=== PATIENT | male | born 1940 | race Caucasian/White ===

== ENCOUNTER 2018-01-29 11:06 | Inpatient (IN) ==
[2018-01-29] MEDS ORDERED: SODIUM CHLORIDE 0.9% 1,000 ML IV STA (14:39)
[2018-01-29] MEDS ORDERED: CHOLESTYRAMINE 4 GM PACK PO STA (14:39)
[2018-01-29 15:03] LABS: Basophils % 0.5 % (0.0-0.8); Eosinophils # 0.1 10*3/uL (0.0-0.87); Eosinophils % 6.5 % (0.00-10.9); Hematocrit 39.1 VOL% (42.0-52.0); Hemoglobin 12.5 GM/DL (14.0-18.0); Immature Granulocytes % 1.6 %; Immature Granulocytes Absolute 0.03 #; Mean Corpuscular Hemoglobin 29 PG (27-34); Mean Corpuscular Volume 89.3 FL (87-102); Mean Platelet Volume 9.8 FL (9.6-12.0); Monocytes # 0.2 10*3/uL (0.11-0.8); Monocytes % 10.3 % (1.7-12.7); Neutrophils # 0.5 10*3/uL (1.4-7.4); Neutrophils % 28.1 % (38.7-73.9); Red Blood Count 4.38 MC/CUMM (3.8-5.5); Red Cell Distribution Width 16.1 % (9.3-17.3); White Blood Count 1.9 T/CUMM (4-12)
[2018-01-29 15:04] LABS: Platelet Count 84 T/CUMM (130-400)
[2018-01-29 15:19] LABS: Albumin 2.7 G/DL (3.4-5.0); Bilirubin,Total 0.5 MG/DL (0.2-1.0); Calcium 8.2 MG/DL (8.5-10.1); Osmolality,Calculated 269.5 MOS/KG (273-304); Potassium 4.3 MMOL/L (3.5-5.1)
[2018-01-29 15:57] LABS: Eosinophils 9 % (0-10); Lymphocytes 56 % (20-55); Platelet Estimate Decreased; Segmented Neutrophils 29 % (50-85); Total Cells Counted 100
[2018-01-29 16:00] LABS: Polychromasia Few
[2018-01-29] MEDS ORDERED: chlorproMAZINE INJ 50 MG in SODIUM CHLORIDE 0.9% 100 ML IV PRN (17:31)
[2018-01-29] MEDS ORDERED: BENZTROPINE 2 MG/2 ML AMP IV PRN (17:31)
[2018-01-29] MEDS ORDERED: traMADol 50 MG TABLET PO PRN (17:31)
[2018-01-29] MEDS ORDERED: MYLANTA/LIDO VISC 2:1 300 ML BOTTLE SWISH/SWAL PRN (17:31)
[2018-01-29] MEDS ORDERED: ALPRAZolam 0.25 MG TABLET PO PRN (17:31)
[2018-01-29] MEDS ORDERED: ACETAMINOPHEN 325 MG TABLET PO PRN (17:31)
[2018-01-29] MEDS ORDERED: diphenhydrAMINE CAP 25 MG CAPSULE PO PRN (17:31)
[2018-01-29] MEDS ORDERED: guaiFENesin 200 MG/10 ML UDCUP PO PRN (17:31)
[2018-01-29] MEDS ORDERED: chlorproMAZINE 25 MG TABLET PO PRN (17:31)
[2018-01-29] MEDS ORDERED: ALUMINUM/MAGNES/SIMETH MAX STR 30 ML UDCUP PO PRN (17:31)
[2018-01-29] MEDS ORDERED: TEMAZEPAM 7.5 MG CAPSULE PO PRN (17:31)
[2018-01-29] MEDS ORDERED: MYLANTA/LIDO VISC 2:1 300 ML BOTTLE SWISH/SPIT PRN (17:31)
[2018-01-29] MEDS ORDERED: chlorproMAZINE INJ 25 MG in SODIUM CHLORIDE 0.9% 100 ML IV PRN (17:31)
[2018-01-29] MEDS: CHOLESTYRAMINE 4 GM PACK PO SCH ×2 (18:00→20:42)
[2018-01-29] MEDS: SODIUM CHLORIDE 0.9% 1,000 ML IV SCH (18:08)
[2018-01-29 22:47] LABS: Apearance,Urine CLEAR (Clear); Bilirubin,Urine Negative (Negative); Blood, Urine Small mg/dL (Negative); Glucose,Urine (UA) Negative (Negative); Ketones,Urine Negative (Negative); Mucus,Urine Occasional /LPF (Occasional); Nitrite,Urine Negative (Negative); Protein,Urine 100 MG/DL; Squamous Epithelial Cell,Urine Occasional /HPF (0-10); Urine Color Yellow (Yellow); Urine Specific Gravity 1.009 (1.001-1.035); Urine Urobilinogen < 2.0 EU/DL (0.2-1.0); WBC,Urine <1 /HPF (0-6)
[2018-01-30] MEDS: SODIUM CHLORIDE 0.9% 1,000 ML IV SCH ×4 (02:00→20:20)
[2018-01-30] MEDS: ONDANSETRON 4 MG/2 ML VIAL IV PRN (07:39)
[2018-01-30] MEDS: ENOXAPARIN 30 MG/0.3 ML SYRINGE SUBCUT SCH (10:18)
[2018-01-30] MEDS: CIPROFLOXACIN 500 MG TABLET PO SCH ×2 (10:18→20:18)
[2018-01-30] MEDS: CHOLESTYRAMINE 4 GM PACK PO SCH ×3 (10:19→17:37)
[2018-01-30] MEDS: FILGRASTIM-SNDZ 300 MCG/0.5 ML SYRINGE SUBCUT SCH (10:21)
[2018-01-30] MEDS: PROMETHAZINE INJ 25 MG in SODIUM CHLORIDE 0.9% 50 ML IV PRN (11:18)
[2018-01-30 11:41] LABS: Eosinophils # 0.1 10*3/uL (0.0-0.87); Hematocrit 32.6 VOL% (42.0-52.0); Hemoglobin 10.5 GM/DL (14.0-18.0); Lymphocytes # 0.3 10*3/uL (1.4-4.0); Lymphocytes % 43.7 % (21.2-54.2); Mean Corpuscular HGB Conc 32.2 GM/DL (32-36); Mean Corpuscular Hemoglobin 29 PG (27-34); Mean Corpuscular Volume 89.1 FL (87-102); Mean Platelet Volume 10.6 FL (9.6-12.0); Monocytes # 0.2 10*3/uL (0.11-0.8); Monocytes % 22.5 % (1.7-12.7); Neutrophils # 0.2 10*3/uL (1.4-7.4); Neutrophils % 26.8 % (38.7-73.9); Platelet Count 73 T/CUMM (130-400); Red Blood Count 3.66 MC/CUMM (3.8-5.5); Red Cell Distribution Width 15.9 % (9.3-17.3)
[2018-01-30 11:44] LABS: White Blood Count 0.7 T/CUMM (4-12)
[2018-01-30 12:08] LABS: Band Neutrophils 7 % (0-10); Eosinophils 13 % (0-10); Hypochromasia 1+; Lymphocytes 40 % (20-55); Microcytosis 1+; Segmented Neutrophils 27 % (50-85); Total Cells Counted 100
[2018-01-30 12:09] LABS: Ovalocytes Slight; Platelet Estimate Decreased
[2018-01-30] MEDS: metroNIDAZOLE 500 MG TABLET PO SCH ×2 (14:24→20:17)
[2018-01-31] MEDS: SODIUM CHLORIDE 0.9% 1,000 ML IV SCH ×3 (04:21→12:46)
[2018-01-31 05:28] LABS: Eosinophils # 0.1 10*3/uL (0.0-0.87); Eosinophils % 15.3 % (0.00-10.9); Hematocrit 28.3 VOL% (42.0-52.0); Hemoglobin 9.4 GM/DL (14.0-18.0); Lymphocytes # 0.3 10*3/uL (1.4-4.0); Lymphocytes % 38.8 % (21.2-54.2); Mean Corpuscular HGB Conc 33.2 GM/DL (32-36); Mean Corpuscular Hemoglobin 29 PG (27-34); Mean Corpuscular Volume 87.3 FL (87-102); Mean Platelet Volume 11.4 FL (9.6-12.0); Monocytes # 0.2 10*3/uL (0.11-0.8); Monocytes % 18.8 % (1.7-12.7); NRBC # 0.03 10*3/uL; Neutrophils # 0.2 10*3/uL (1.4-7.4); Neutrophils % 27.1 % (38.7-73.9); Red Blood Count 3.24 MC/CUMM (3.8-5.5); Red Cell Distribution Width 16.1 % (9.3-17.3)
[2018-01-31 05:32] LABS: Platelet Count 69 T/CUMM (130-400)
[2018-01-31 05:33] LABS: White Blood Count 0.9 T/CUMM (4-12)
[2018-01-31 05:52] LABS: Calcium 7.4 MG/DL (8.5-10.1); Osmolality,Calculated 281.7 MOS/KG (273-304); Potassium 3.9 MMOL/L (3.5-5.1)
[2018-01-31 06:02] LABS: Band Neutrophils 2 % (0-10); Eosinophils 10 % (0-10); Lymphocytes 28 % (20-55); Platelet Estimate Decreased; Segmented Neutrophils 40 % (50-85); Total Cells Counted 100
[2018-01-31 06:03] LABS: Ovalocytes Few; Polychromasia Slight; Tear Drop Cells Few
[2018-01-31] MEDS: ENOXAPARIN 30 MG/0.3 ML SYRINGE SUBCUT SCH (09:59)
[2018-01-31] MEDS: FILGRASTIM-SNDZ 300 MCG/0.5 ML SYRINGE SUBCUT SCH (10:05)
[2018-01-31] MEDS: ONDANSETRON 4 MG/2 ML VIAL IV PRN ×2 (10:07→18:35)
[2018-01-31] MEDS: PROMETHAZINE INJ 25 MG in SODIUM CHLORIDE 0.9% 50 ML IV PRN ×2 (12:12→22:13)
[2018-02-01] MEDS: SODIUM CHLORIDE 0.9% 1,000 ML IV SCH ×2 (04:38→18:59)
[2018-02-01 06:46] LABS: Eosinophils # 0.2 10*3/uL (0.0-0.87); Eosinophils % 20.6 % (0.00-10.9); Hematocrit 28.8 VOL% (42.0-52.0); Hemoglobin 9.1 GM/DL (14.0-18.0); Immature Granulocytes Absolute 0.02 #; Lymphocytes # 0.3 10*3/uL (1.4-4.0); Lymphocytes % 28.4 % (21.2-54.2); Mean Corpuscular HGB Conc 31.6 GM/DL (32-36); Mean Corpuscular Hemoglobin 29 PG (27-34); Mean Corpuscular Volume 90.9 FL (87-102); Mean Platelet Volume 11.3 FL (9.6-12.0); Monocytes # 0.2 10*3/uL (0.11-0.8); Monocytes % 17.6 % (1.7-12.7); Neutrophils # 0.3 10*3/uL (1.4-7.4); Neutrophils % 30.4 % (38.7-73.9); Platelet Count 72 T/CUMM (130-400); Red Blood Count 3.17 MC/CUMM (3.8-5.5); Red Cell Distribution Width 16.1 % (9.3-17.3)
[2018-02-01 07:19] LABS: Band Neutrophils 8 % (0-10); Eosinophils 12 % (0-10); Lymphocytes 28 % (20-55); Segmented Neutrophils 40 % (50-85); Total Cells Counted 100
[2018-02-01 07:20] LABS: Burr Cells Slight; Hypochromasia 1+; Microcytosis 1+; Ovalocytes Slight; Platelet Estimate Decreased
[2018-02-01 07:26] LABS: Calcium 7.9 MG/DL (8.5-10.1); Osmolality,Calculated 283.4 MOS/KG (273-304)
[2018-02-01] MEDS ORDERED: oxyCODONE IR 5 MG TABLET PO PRN (08:17)
[2018-02-01] MEDS ORDERED: FLUTAMIDE 125 MG PO SCH (09:00)
[2018-02-01] MEDS ORDERED: Saccharomyces Boulardii [Probiotic] 250 MG PO SCH (09:00)
[2018-02-01] MEDS: MULTIVITAMIN (CENTRUM) TABLET PO SCH (09:40)
[2018-02-01] MEDS: PANTOPRAZOLE 40 MG TABLET PO SCH (09:41)
[2018-02-01] MEDS: DULoxetine 30 MG CAPSULE PO SCH (09:41)
[2018-02-01] MEDS: ASPIRIN EC 81 MG TABLET PO SCH (09:41)
[2018-02-01] MEDS: ENOXAPARIN 30 MG/0.3 ML SYRINGE SUBCUT SCH (09:44)
[2018-02-01] MEDS: FILGRASTIM-SNDZ 300 MCG/0.5 ML SYRINGE SUBCUT SCH (09:44)
[2018-02-01] MEDS: ONDANSETRON 4 MG/2 ML VIAL IV PRN ×2 (12:26→18:27)
[2018-02-01] MEDS ORDERED: GABAPENTIN 300 MG CAPSULE PO SCH (21:00)
[2018-02-02 06:26] LABS: Basophils % 0.9 % (0.0-0.8); Eosinophils # 0.2 10*3/uL (0.0-0.87); Eosinophils % 15.9 % (0.00-10.9); Hematocrit 28.2 VOL% (42.0-52.0); Hemoglobin 9.2 GM/DL (14.0-18.0); Lymphocytes # 0.4 10*3/uL (1.4-4.0); Mean Corpuscular HGB Conc 32.6 GM/DL (32-36); Mean Corpuscular Hemoglobin 28 PG (27-34); Mean Corpuscular Volume 86.8 FL (87-102); Mean Platelet Volume 11.1 FL (9.6-12.0); Monocytes # 0.2 10*3/uL (0.11-0.8); NRBC # 0.03 10*3/uL; Neutrophils # 0.4 10*3/uL (1.4-7.4); Neutrophils % 37.2 % (38.7-73.9); Platelet Count 80 T/CUMM (130-400); Red Blood Count 3.25 MC/CUMM (3.8-5.5); Red Cell Distribution Width 15.9 % (9.3-17.3); White Blood Count 1.1 T/CUMM (4-12)
[2018-02-02] MEDS: SODIUM CHLORIDE 0.9% 1,000 ML IV SCH (06:37)
[2018-02-02 06:50] LABS: Calcium 7.8 MG/DL (8.5-10.1); Potassium 3.8 MMOL/L (3.5-5.1)
[2018-02-02 07:57] VITALS: BP 142/64
[2018-02-02 08:43] LABS: Band Neutrophils 2 % (0-10); Eosinophils 20 % (0-10); Lymphocytes 38 % (20-55); Segmented Neutrophils 30 % (50-85); Total Cells Counted 100
[2018-02-02 08:44] LABS: Hypochromasia 1+; Microcytosis 1+; Ovalocytes Few; Platelet Estimate Decreased
[2018-02-02] MEDS: DULoxetine 30 MG CAPSULE PO SCH (08:45)
[2018-02-02] MEDS: MULTIVITAMIN (CENTRUM) TABLET PO SCH (08:45)
[2018-02-02] MEDS: ASPIRIN EC 81 MG TABLET PO SCH (08:46)
[2018-02-02] MEDS: PANTOPRAZOLE 40 MG TABLET PO SCH (08:46)
[2018-02-02] MEDS: FILGRASTIM-SNDZ 300 MCG/0.5 ML SYRINGE SUBCUT SCH (08:46)
[2018-02-02] MEDS: ENOXAPARIN 30 MG/0.3 ML SYRINGE SUBCUT SCH (08:46)
[2018-02-03] MEDS ORDERED: ACYCLOVIR 200 MG CAPSULE PO SCH (09:00)
== END 2018-02-02 12:00 | disposition home or self-care (01) | DRG 372 ==
LOC: N.ED 11:06 → N.EDINP 16:24 → N.4E 17:03
PROVIDERS: ADMIT Specialist; ATTEND Specialist

== ENCOUNTER 2018-03-30 18:54 | Inpatient (IN) ==
[2018-03-30 21:03] LABS: Basophils % 0.6 % (0.0-0.8); Eosinophils # 0.2 10*3/uL (0.0-0.87); Eosinophils % 12.6 % (0.00-10.9); Hematocrit 31.2 VOL% (42.0-52.0); Hemoglobin 9.8 GM/DL (14.0-18.0); Lymphocytes # 0.5 10*3/uL (1.4-4.0); Lymphocytes % 26.3 % (21.2-54.2); Mean Corpuscular HGB Conc 31.4 GM/DL (32-36); Mean Corpuscular Hemoglobin 28 PG (27-34); Mean Corpuscular Volume 88.9 FL (87-102); Mean Platelet Volume 9.3 FL (9.6-12.0); Monocytes # 0.3 10*3/uL (0.11-0.8); Monocytes % 15.4 % (1.7-12.7); Neutrophils # 0.8 10*3/uL (1.4-7.4); Neutrophils % 45.1 % (38.7-73.9); Platelet Count 139 T/CUMM (130-400); Red Blood Count 3.51 MC/CUMM (3.8-5.5); Red Cell Distribution Width 17.3 % (9.3-17.3); White Blood Count 1.8 T/CUMM (4-12)
[2018-03-30] MEDS ORDERED: ONDANSETRON 4 MG/2 ML VIAL IV STA (21:04)
[2018-03-30] MEDS ORDERED: DICYCLOMINE 20 MG/2 ML AMP IM ONE (21:04)
[2018-03-30] MEDS ORDERED: SODIUM CHLORIDE 0.9% 1,000 ML IV STA (21:04)
[2018-03-30] MEDS ORDERED: metroNIDAZOLE INJ 500 MG in PREMIX 1 EACH IV STA (21:04)
[2018-03-30] MEDS ORDERED: LOPERAMIDE 2 MG CAPSULE PO STA (21:04)
[2018-03-30 21:18] LABS: Apearance,Urine Slightly Hazy (Clear); Bilirubin,Urine Negative (Negative); Blood, Urine Negative (Negative); Glucose,Urine (UA) Negative (Negative); Hyaline Casts,Urine 8 /LPF (0-3); Ketones,Urine Negative (Negative); Mucus,Urine Occasional /LPF (Occasional); Nitrite,Urine Negative (Negative); Protein,Urine 100 MG/DL; Urine Color Yellow (Yellow); Urine Specific Gravity 1.014 (1.001-1.035); Urine Urobilinogen < 2.0 EU/DL (0.2-1.0)
[2018-03-30 21:24] LABS: Albumin 3.1 G/DL (3.4-5.0); Bilirubin,Total 0.4 MG/DL (0.2-1.0); Osmolality,Calculated 284.5 MOS/KG (273-304); Potassium 4.3 MMOL/L (3.5-5.1); Total Protein 6.9 G/DL (6.4-8.3)
[2018-03-30 21:47] LABS: Eosinophils 3 % (0-10); Lymphocytes 35 % (20-55); Segmented Neutrophils 50 % (50-85); Total Cells Counted 101
[2018-03-30 21:48] LABS: Atypical Lymphocytes Few; Elliptocytes 1+; Microcytosis 1+; Platelet Estimate Adequate
[2018-03-31] MEDS ORDERED: ACETAMINOPHEN 325 MG TABLET PO PRN (00:05)
[2018-03-31] MEDS ORDERED: oxyCODONE IR 5 MG TABLET PO PRN (00:17)
[2018-03-31] MEDS: SODIUM CHLORIDE 0.9% 1,000 ML IV SCH ×4 (00:50→19:19)
[2018-03-31 04:31] LABS: Apearance,Urine CLEAR (Clear); Bilirubin,Urine Negative (Negative); Blood, Urine Negative (Negative); Glucose,Urine (UA) Negative (Negative); Ketones,Urine Negative (Negative); Nitrite,Urine Negative (Negative); Protein,Urine 30 MG/DL; RBC,Urine 1 /HPF (0-4); Urine Color Straw (Yellow); Urine Specific Gravity 1.009 (1.001-1.035); Urine Urobilinogen < 2.0 EU/DL (0.2-1.0); WBC,Urine <1 /HPF (0-6)
[2018-03-31 07:06] LABS: Basophils % 0.6 % (0.0-0.8); Eosinophils # 0.5 10*3/uL (0.0-0.87); Eosinophils % 27.1 % (0.00-10.9); Hematocrit 26.1 VOL% (42.0-52.0); Hemoglobin 8.3 GM/DL (14.0-18.0); Immature Granulocytes % 1.2 %; Immature Granulocytes Absolute 0.02 #; Lymphocytes # 0.5 10*3/uL (1.4-4.0); Lymphocytes % 31.3 % (21.2-54.2); Mean Corpuscular HGB Conc 31.8 GM/DL (32-36); Mean Corpuscular Hemoglobin 28 PG (27-34); Mean Corpuscular Volume 87.9 FL (87-102); Monocytes # 0.3 10*3/uL (0.11-0.8); Monocytes % 15.7 % (1.7-12.7); NRBC # 0.02 10*3/uL; Neutrophils # 0.4 10*3/uL (1.4-7.4); Neutrophils % 24.1 % (38.7-73.9); Platelet Count 109 T/CUMM (130-400); Red Blood Count 2.97 MC/CUMM (3.8-5.5); Red Cell Distribution Width 17.3 % (9.3-17.3); White Blood Count 1.7 T/CUMM (4-12)
[2018-03-31 07:33] LABS: Band Neutrophils 4 % (0-10); Calcium 8.4 MG/DL (8.5-10.1); Eosinophils 38 % (0-10); Hypochromasia 1+; Lymphocytes 25 % (20-55); Potassium 4.6 MMOL/L (3.5-5.1); Segmented Neutrophils 27 % (50-85); Total Cells Counted 100
[2018-03-31 07:34] LABS: Elliptocytes Few; Microcytosis 1+; Platelet Estimate Decreased
[2018-03-31] MEDS ORDERED: Saccharomyces Boulardii [Probiotic] 250 MG PO SCH (09:00)
[2018-03-31] MEDS: ACYCLOVIR 800 MG TABLET PO SCH (09:03)
[2018-03-31] MEDS: METHYLPHENIDATE 5 MG TABLET PO SCH ×2 (09:04→20:24)
[2018-03-31] MEDS: ENOXAPARIN 30 MG/0.3 ML SYRINGE SUBCUT SCH (09:04)
[2018-03-31] MEDS: DULoxetine 30 MG CAPSULE PO SCH (09:04)
[2018-03-31] MEDS: MULTIVITAMIN (CENTRUM) TABLET PO SCH (09:04)
[2018-03-31] MEDS: predniSONE 5 MG TABLET PO SCH ×2 (09:04→20:24)
[2018-03-31] MEDS: GABAPENTIN 300 MG CAPSULE PO SCH ×2 (09:04→20:23)
[2018-03-31] MEDS: PANTOPRAZOLE 40 MG TABLET PO SCH (09:04)
[2018-03-31] MEDS ORDERED: DIPHENOXYLATE/ATROPINE 2.5-0.025 MG TABLET PO PRN (10:37)
[2018-03-31] MEDS: FILGRASTIM-SNDZ 480 MCG/0.8 ML SYRINGE SUBCUT SCH (11:28)
[2018-03-31] MEDS: LOPERAMIDE 2 MG CAPSULE PO PRN (12:45)
[2018-03-31] MEDS: ONDANSETRON 4 MG/2 ML VIAL IV PRN (13:56)
[2018-03-31 15:59] LABS: Hematocrit 25.6 VOL% (42.0-52.0); Hemoglobin 8.1 GM/DL (14.0-18.0)
[2018-03-31] MEDS ORDERED: ZALEPLON 5 MG CAPSULE PO PRN (20:36)
[2018-04-01] MEDS: SODIUM CHLORIDE 0.9% 1,000 ML IV SCH ×3 (00:27→06:00)
[2018-04-01 05:02] LABS: Basophils % 0.6 % (0.0-0.8); Eosinophils # 0.2 10*3/uL (0.0-0.87); Eosinophils % 10.8 % (0.00-10.9); Hematocrit 24.8 VOL% (42.0-52.0); Hemoglobin 7.6 GM/DL (14.0-18.0); Immature Granulocytes % 2.8 %; Immature Granulocytes Absolute 0.05 #; Lymphocytes # 0.5 10*3/uL (1.4-4.0); Lymphocytes % 29.5 % (21.2-54.2); Mean Corpuscular HGB Conc 30.6 GM/DL (32-36); Mean Corpuscular Hemoglobin 28 PG (27-34); Mean Corpuscular Volume 90.5 FL (87-102); Mean Platelet Volume 10.7 FL (9.6-12.0); Monocytes # 0.4 10*3/uL (0.11-0.8); Monocytes % 20.5 % (1.7-12.7); Neutrophils # 0.6 10*3/uL (1.4-7.4); Neutrophils % 35.8 % (38.7-73.9); Platelet Count 91 T/CUMM (130-400); Red Blood Count 2.74 MC/CUMM (3.8-5.5); Red Cell Distribution Width 17.6 % (9.3-17.3); White Blood Count 1.8 T/CUMM (4-12)
[2018-04-01 05:17] LABS: Calcium 7.6 MG/DL (8.5-10.1); Osmolality,Calculated 287.8 MOS/KG (273-304); Potassium 4.4 MMOL/L (3.5-5.1)
[2018-04-01 05:56] LABS: Band Neutrophils 7 % (0-10); Eosinophils 8 % (0-10); Lymphocytes 41 % (20-55); Myelocytes 1 %; Segmented Neutrophils 26 % (50-85); Total Cells Counted 100
[2018-04-01 05:59] LABS: Anisocytosis 1+; Hypochromasia 1+; Ovalocytes 2+; Platelet Estimate Decreased
[2018-04-01] MEDS: ONDANSETRON 4 MG/2 ML VIAL IV PRN (10:39)
[2018-04-01] MEDS: SODIUM CHLORIDE 0.45% 1,000 ML IV SCH ×2 (10:56→19:11)
[2018-04-01] MEDS: DULoxetine 30 MG CAPSULE PO SCH (11:26)
[2018-04-01] MEDS: MULTIVITAMIN (CENTRUM) TABLET PO SCH (11:26)
[2018-04-01] MEDS: GABAPENTIN 300 MG CAPSULE PO SCH ×2 (11:26→20:24)
[2018-04-01] MEDS: ACYCLOVIR 800 MG TABLET PO SCH (11:26)
[2018-04-01] MEDS: PANTOPRAZOLE 40 MG TABLET PO SCH (11:27)
[2018-04-01] MEDS: predniSONE 5 MG TABLET PO SCH ×2 (11:27→20:24)
[2018-04-01] MEDS: FILGRASTIM-SNDZ 480 MCG/0.8 ML SYRINGE SUBCUT SCH (11:27)
[2018-04-01] MEDS: METHYLPHENIDATE 5 MG TABLET PO SCH ×2 (11:27→20:26)
[2018-04-01] MEDS: ENOXAPARIN 30 MG/0.3 ML SYRINGE SUBCUT SCH (11:27)
[2018-04-01] MEDS: LOPERAMIDE 2 MG CAPSULE PO PRN (14:14)
[2018-04-02] MEDS: SODIUM CHLORIDE 0.45% 1,000 ML IV SCH (03:33)
[2018-04-02 06:50] LABS: Basophils % 0.7 % (0.0-0.8); Eosinophils # 0.1 10*3/uL (0.0-0.87); Eosinophils % 3.8 % (0.00-10.9); Hematocrit 26.9 VOL% (42.0-52.0); Hemoglobin 8.5 GM/DL (14.0-18.0); Immature Granulocytes % 6.2 %; Immature Granulocytes Absolute 0.18 #; Lymphocytes # 0.8 10*3/uL (1.4-4.0); Lymphocytes % 28.3 % (21.2-54.2); Mean Corpuscular HGB Conc 31.6 GM/DL (32-36); Mean Corpuscular Hemoglobin 28 PG (27-34); Mean Corpuscular Volume 87.6 FL (87-102); Mean Platelet Volume 10.2 FL (9.6-12.0); Monocytes # 0.6 10*3/uL (0.11-0.8); Neutrophils # 1.2 10*3/uL (1.4-7.4); Platelet Count 101 T/CUMM (130-400); Red Blood Count 3.07 MC/CUMM (3.8-5.5); Red Cell Distribution Width 17.6 % (9.3-17.3); White Blood Count 2.9 T/CUMM (4-12)
[2018-04-02 07:16] LABS: Calcium 8.4 MG/DL (8.5-10.1)
[2018-04-02 07:17] LABS: Osmolality,Calculated 282.1 MOS/KG (273-304); Potassium 4.5 MMOL/L (3.5-5.1)
[2018-04-02 07:31] LABS: Band Neutrophils 37 % (0-10); Eosinophils 4 % (0-10); Lymphocytes 26 % (20-55); Platelet Estimate Adequate; Segmented Neutrophils 19 % (50-85); Total Cells Counted 100
[2018-04-02 07:32] LABS: Anisocytosis 1+; Poikilocytosis Slight
[2018-04-02] MEDS: METHYLPHENIDATE 5 MG TABLET PO SCH ×2 (08:55→21:15)
[2018-04-02] MEDS: FILGRASTIM-SNDZ 480 MCG/0.8 ML SYRINGE SUBCUT SCH (08:55)
[2018-04-02] MEDS: ENOXAPARIN 30 MG/0.3 ML SYRINGE SUBCUT SCH (08:55)
[2018-04-02] MEDS: PANTOPRAZOLE 40 MG TABLET PO SCH (08:55)
[2018-04-02] MEDS: ACYCLOVIR 800 MG TABLET PO SCH (08:56)
[2018-04-02] MEDS: DULoxetine 30 MG CAPSULE PO SCH (08:56)
[2018-04-02] MEDS: MULTIVITAMIN (CENTRUM) TABLET PO SCH (08:56)
[2018-04-02] MEDS: GABAPENTIN 300 MG CAPSULE PO SCH ×2 (08:56→21:09)
[2018-04-02] MEDS: predniSONE 5 MG TABLET PO SCH ×2 (08:56→21:09)
[2018-04-02] MEDS: ONDANSETRON 4 MG/2 ML VIAL IV PRN (12:49)
[2018-04-02] MEDS: PROCHLORPERAZINE 10 MG TABLET PO SCH (21:09)
[2018-04-02] MEDS: CHOLESTYRAMINE 4 GM PACK PO SCH (21:11)
[2018-04-03 06:59] LABS: Basophils % 0.7 % (0.0-0.8); Eosinophils # 0.2 10*3/uL (0.0-0.87); Hematocrit 27.9 VOL% (42.0-52.0); Hemoglobin 9.1 GM/DL (14.0-18.0); Immature Granulocytes % 0.5 %; Immature Granulocytes Absolute 0.02 #; Lymphocytes # 0.9 10*3/uL (1.4-4.0); Lymphocytes % 20.6 % (21.2-54.2); Mean Corpuscular HGB Conc 32.6 GM/DL (32-36); Mean Corpuscular Hemoglobin 28 PG (27-34); Mean Corpuscular Volume 86.4 FL (87-102); Mean Platelet Volume 10.3 FL (9.6-12.0); Monocytes # 0.8 10*3/uL (0.11-0.8); Monocytes % 19.4 % (1.7-12.7); Neutrophils # 2.3 10*3/uL (1.4-7.4); Neutrophils % 54.8 % (38.7-73.9); Platelet Count 114 T/CUMM (130-400); Red Blood Count 3.23 MC/CUMM (3.8-5.5); Red Cell Distribution Width 17.7 % (9.3-17.3); White Blood Count 4.3 T/CUMM (4-12)
[2018-04-03 07:23] LABS: Calcium 8.7 MG/DL (8.5-10.1); Osmolality,Calculated 281.3 MOS/KG (273-304); Potassium 3.9 MMOL/L (3.5-5.1)
[2018-04-03 07:26] LABS: Band Neutrophils 2 % (0-10); Eosinophils 8 % (0-10); Hypochromasia 1+; Lymphocytes 18 % (20-55); Ovalocytes Slight; Platelet Estimate Decreased; Segmented Neutrophils 54 % (50-85); Total Cells Counted 100
[2018-04-03] MEDS: PROCHLORPERAZINE 10 MG TABLET PO SCH (09:33)
[2018-04-03] MEDS: MULTIVITAMIN (CENTRUM) TABLET PO SCH (09:34)
[2018-04-03] MEDS: PANTOPRAZOLE 40 MG TABLET PO SCH (09:34)
[2018-04-03] MEDS: DULoxetine 30 MG CAPSULE PO SCH (09:34)
[2018-04-03] MEDS: METHYLPHENIDATE 5 MG TABLET PO SCH (09:35)
[2018-04-03] MEDS: predniSONE 5 MG TABLET PO SCH (09:35)
[2018-04-03] MEDS: CHOLESTYRAMINE 4 GM PACK PO SCH (09:35)
[2018-04-03] MEDS: GABAPENTIN 300 MG CAPSULE PO SCH (09:35)
[2018-04-03] MEDS: FILGRASTIM-SNDZ 480 MCG/0.8 ML SYRINGE SUBCUT SCH (09:36)
[2018-04-03] MEDS: ENOXAPARIN 30 MG/0.3 ML SYRINGE SUBCUT SCH (09:38)
[2018-04-03] MEDS: ACYCLOVIR 800 MG TABLET PO SCH (09:38)
[2018-04-03 11:46] VITALS: BP 135/51
== END 2018-04-03 12:55 | disposition home or self-care (01) | DRG 391 ==
LOC: N.ED 18:54 → SUATTDRO 03-31 00:05 → N.EDINP 03-31 00:05 → N.5E 03-31 01:28 → N.4E 03-31 01:43
PROVIDERS: ADMIT Hospitalist; ATTEND Hospitalist

== ENCOUNTER 2018-07-17 14:32 | Inpatient (IN) ==
[2018-07-17 14:48] LABS: BUN/Creatinine Ratio 11.5 RATIO (7.0-25.0); Bilirubin,Total 0.7 MG/DL (0.2-1.3); Calcium 8.8 MG/DL (8.4-10.2); Potassium 4.8 MMOL/L (3.6-5.0); Total Protein 7.5 G/DL (6.3-8.2)
[2018-07-17] MEDS ORDERED: traMADol 50 MG TABLET PO PRN (16:52)
[2018-07-17] MEDS ORDERED: chlorproMAZINE INJ 50 MG in SODIUM CHLORIDE 0.9% 100 ML IV PRN (16:52)
[2018-07-17] MEDS ORDERED: MYLANTA/LIDO VISC 2:1 300 ML BOTTLE SWISH/SPIT PRN (16:52)
[2018-07-17] MEDS ORDERED: chlorproMAZINE 25 MG TABLET PO PRN (16:52)
[2018-07-17] MEDS ORDERED: ALPRAZolam 0.25 MG TABLET PO PRN (16:52)
[2018-07-17] MEDS ORDERED: BENZTROPINE 2 MG/2 ML AMP IV PRN (16:52)
[2018-07-17] MEDS ORDERED: TEMAZEPAM 7.5 MG CAPSULE PO PRN (16:52)
[2018-07-17] MEDS ORDERED: MYLANTA/LIDO VISC 2:1 300 ML BOTTLE SWISH/SWAL PRN (16:52)
[2018-07-17] MEDS ORDERED: MAGNESIUM HYDROXIDE SUSP 30 ML UDCUP PO PRN (16:52)
[2018-07-17] MEDS ORDERED: LACTULOSE 20 GM/30 ML UDCUP PO PRN (16:52)
[2018-07-17] MEDS ORDERED: ONDANSETRON 4 MG/2 ML VIAL IV PRN (16:52)
[2018-07-17] MEDS ORDERED: LOPERAMIDE 2 MG CAPSULE PO PRN ×2 (16:52)
[2018-07-17] MEDS ORDERED: ACETAMINOPHEN 325 MG TABLET PO PRN (16:52)
[2018-07-17] MEDS ORDERED: guaiFENesin 200 MG/10 ML UDCUP PO PRN (16:52)
[2018-07-17] MEDS ORDERED: ALUMINUM/MAGNES/SIMETH MAX STR 30 ML UDCUP PO PRN (16:52)
[2018-07-17] MEDS ORDERED: chlorproMAZINE INJ 25 MG in SODIUM CHLORIDE 0.9% 100 ML IV PRN (16:52)
[2018-07-17] MEDS ORDERED: PROMETHAZINE INJ 25 MG in SODIUM CHLORIDE 0.9% 50 ML IV PRN (16:52)
[2018-07-17] MEDS ORDERED: diphenhydrAMINE CAP 25 MG CAPSULE PO PRN (16:52)
[2018-07-17] MEDS ORDERED: PIPERACILLIN/TAZOBACTAM 3,375 MG in SODIUM CHLORIDE 0.9% 100 ML IV SCH (17:30)
[2018-07-17 17:33] LABS: Basophils % 0.7 % (0.0-0.8); Hematocrit 27.9 VOL% (42.0-52.0); Hemoglobin 8.6 GM/DL (14.0-18.0); Immature Granulocytes % 0.8 %; Immature Granulocytes Absolute 0.05 #; Lymphocytes # 0.5 10*3/uL (1.4-4.0); Lymphocytes % 8.8 % (21.2-54.2); Mean Corpuscular HGB Conc 30.8 GM/DL (32-36); Mean Corpuscular Hemoglobin 26 PG (27-34); Mean Corpuscular Volume 85.1 FL (87-102); Mean Platelet Volume 10.3 FL (9.6-12.0); Monocytes # 0.3 10*3/uL (0.11-0.8); Monocytes % 4.3 % (1.7-12.7); Neutrophils # 5.2 10*3/uL (1.4-7.4); Neutrophils % 85.4 % (38.7-73.9); Platelet Count 236 T/CUMM (130-400); Red Blood Count 3.28 MC/CUMM (3.8-5.5); Red Cell Distribution Width 16.2 % (9.3-17.3)
[2018-07-17] MEDS: MORPHINE 4 MG/1 ML VIAL IV PRN (19:04)
[2018-07-17] MEDS: SODIUM CHLORIDE 0.45% 1,000 ML IV SCH (19:05)
[2018-07-17] MEDS: PIPERACILLIN/TAZOBACTAM 3,375 MG in SODIUM CHLORIDE 0.9% 100 ML IV SCH (21:03)
[2018-07-18] MEDS: MORPHINE 4 MG/1 ML VIAL IV PRN ×3 (01:48→12:26)
[2018-07-18] MEDS: PIPERACILLIN/TAZOBACTAM 3,375 MG in SODIUM CHLORIDE 0.9% 100 ML IV SCH ×3 (04:54→20:32)
[2018-07-18 05:16] LABS: Basophils % 0.7 % (0.0-0.8); Eosinophils % 0.7 % (0.00-10.9); Hematocrit 26.7 VOL% (42.0-52.0); Hemoglobin 8.2 GM/DL (14.0-18.0); Immature Granulocytes % 0.5 %; Immature Granulocytes Absolute 0.02 #; Lymphocytes # 0.7 10*3/uL (1.4-4.0); Lymphocytes % 17.9 % (21.2-54.2); Mean Corpuscular HGB Conc 30.7 GM/DL (32-36); Mean Corpuscular Hemoglobin 26 PG (27-34); Mean Corpuscular Volume 85.6 FL (87-102); Monocytes # 0.2 10*3/uL (0.11-0.8); Monocytes % 5.4 % (1.7-12.7); Neutrophils # 3.1 10*3/uL (1.4-7.4); Neutrophils % 74.8 % (38.7-73.9); Platelet Count 197 T/CUMM (130-400); Red Blood Count 3.12 MC/CUMM (3.8-5.5); Red Cell Distribution Width 16.5 % (9.3-17.3); White Blood Count 4.1 T/CUMM (4-12)
[2018-07-18 05:41] LABS: Albumin 2.6 G/DL (3.4-5.0); Bilirubin,Total 0.8 MG/DL (0.2-1.0); Calcium 8.1 MG/DL (8.5-10.1); Osmolality,Calculated 276.8 MOS/KG (273-304); Potassium 3.9 MMOL/L (3.5-5.1); Total Protein 6.3 G/DL (6.4-8.3)
[2018-07-18] MEDS ORDERED: LOPERAMIDE 2 MG CAPSULE PO PRN (08:39)
[2018-07-18] MEDS ORDERED: oxyCODONE IR 5 MG TABLET PO PRN (08:39)
[2018-07-18] MEDS: LACTOBACILLUS ACIDOPHILUS/BULGARICUS CAPLET PO SCH (09:43)
[2018-07-18] MEDS: DULoxetine 30 MG CAPSULE PO SCH (09:43)
[2018-07-18] MEDS: PANTOPRAZOLE 40 MG TABLET PO SCH (09:44)
[2018-07-18] MEDS: ONDANSETRON 4 MG TABLET PO SCH ×3 (09:44→20:33)
[2018-07-18] MEDS: ASPIRIN EC 81 MG TABLET PO SCH (09:44)
[2018-07-18] MEDS: MULTIVITAMIN (CENTRUM) TABLET PO SCH (09:45)
[2018-07-18] MEDS: SODIUM CHLORIDE 0.45% 1,000 ML IV SCH ×2 (19:05→20:32)
[2018-07-18] MEDS: GABAPENTIN 300 MG CAPSULE PO SCH (20:33)
[2018-07-19] MEDS: ONDANSETRON 4 MG TABLET PO SCH ×4 (02:49→20:49)
[2018-07-19 04:30] LABS: Eosinophils # 0.2 10*3/uL (0.0-0.87); Eosinophils % 4.4 % (0.00-10.9); Hematocrit 30.6 VOL% (42.0-52.0); Hemoglobin 9.2 GM/DL (14.0-18.0); Immature Granulocytes % 0.3 %; Immature Granulocytes Absolute 0.01 #; Lymphocytes # 0.6 10*3/uL (1.4-4.0); Lymphocytes % 16.4 % (21.2-54.2); Mean Corpuscular HGB Conc 30.1 GM/DL (32-36); Mean Corpuscular Hemoglobin 26 PG (27-34); Mean Corpuscular Volume 87.2 FL (87-102); Mean Platelet Volume 10.3 FL (9.6-12.0); Monocytes # 0.1 10*3/uL (0.11-0.8); Monocytes % 3.6 % (1.7-12.7); Neutrophils # 2.9 10*3/uL (1.4-7.4); Neutrophils % 74.3 % (38.7-73.9); Platelet Count 233 T/CUMM (130-400); Red Blood Count 3.51 MC/CUMM (3.8-5.5); Red Cell Distribution Width 16.5 % (9.3-17.3); White Blood Count 3.9 T/CUMM (4-12)
[2018-07-19 04:57] LABS: Albumin 2.6 G/DL (3.4-5.0); Bilirubin,Direct 0.14 MG/DL (0.0-0.20); Bilirubin,Indirect 0.5 MG/DL (0.0-1.0); Bilirubin,Total 0.6 MG/DL (0.2-1.0); Total Protein 6.8 G/DL (6.4-8.3)
[2018-07-19 04:58] LABS: Albumin 2.7 G/DL (3.4-5.0); Bilirubin,Total 0.6 MG/DL (0.2-1.0); Calcium 8.5 MG/DL (8.5-10.1); Osmolality,Calculated 278.7 MOS/KG (273-304); Potassium 4.2 MMOL/L (3.5-5.1); Total Protein 6.7 G/DL (6.4-8.3)
[2018-07-19] MEDS: PIPERACILLIN/TAZOBACTAM 3,375 MG in SODIUM CHLORIDE 0.9% 100 ML IV SCH ×2 (05:04→16:01)
[2018-07-19] MEDS ORDERED: LIDOCAINE 2% 5 ML VIAL ONE (09:00)
[2018-07-19] MEDS ORDERED: PROPOFOL 200 MG/20 ML VIAL IV ONE (09:00)
[2018-07-19 14:32] LABS: Hepatitis A Ab IgM Quant 0.09 Index; Hepatitis A Ab IgM Result Negative (Negative); Hepatitis B Core IgM Quant < 0.05 Index; Hepatitis B Core IgM Result Negative (Negative); Hepatitis B Surface Ag Quant 0.15 Index; Hepatitis B Surface Ag Result Negative (Negative); Hepatitis C Virus Ab Quant < 0.02 Index; Hepatitis C Virus Ab Result Negative (Negative)
[2018-07-19] MEDS: PANTOPRAZOLE 40 MG TABLET PO SCH (15:58)
[2018-07-19 16:13] LABS: Apearance,Urine CLEAR (Clear); Bilirubin,Urine Negative (Negative); Blood, Urine Negative (Negative); Glucose,Urine (UA) Negative (Negative); Ketones,Urine Negative (Negative); Mucus,Urine Occasional /LPF (Occasional); Nitrite,Urine Negative (Negative); Protein,Urine 30 MG/DL; RBC,Urine <1 /HPF (0-4); Urine Color Yellow (Yellow); Urine Specific Gravity 1.011 (1.001-1.035); Urine Urobilinogen < 2.0 EU/DL (0.2-1.0); WBC,Urine <1 /HPF (0-6)
[2018-07-19] MEDS: SODIUM CHLORIDE 0.45% 1,000 ML IV SCH ×2 (18:10→23:21)
[2018-07-19] MEDS: DULoxetine 30 MG CAPSULE PO SCH (20:44)
[2018-07-19] MEDS: GABAPENTIN 300 MG CAPSULE PO SCH (20:44)
[2018-07-19] MEDS: MULTIVITAMIN (CENTRUM) TABLET PO SCH (20:44)
[2018-07-19] MEDS: LACTOBACILLUS ACIDOPHILUS/BULGARICUS CAPLET PO SCH (20:44)
[2018-07-19] MEDS: ASPIRIN EC 81 MG TABLET PO SCH (20:45)
[2018-07-20] MEDS: PIPERACILLIN/TAZOBACTAM 3,375 MG in SODIUM CHLORIDE 0.9% 100 ML IV SCH ×3 (00:17→16:58)
[2018-07-20] MEDS: ONDANSETRON 4 MG TABLET PO SCH ×3 (03:00→15:10)
[2018-07-20 04:52] LABS: Basophils % 0.7 % (0.0-0.8); Eosinophils # 0.1 10*3/uL (0.0-0.87); Eosinophils % 3.9 % (0.00-10.9); Hematocrit 26.7 VOL% (42.0-52.0); Immature Granulocytes % 0.4 %; Immature Granulocytes Absolute 0.01 #; Lymphocytes % 33.6 % (21.2-54.2); Mean Corpuscular Hemoglobin 26 PG (27-34); Mean Corpuscular Volume 86.1 FL (87-102); Mean Platelet Volume 10.5 FL (9.6-12.0); Monocytes # 0.3 10*3/uL (0.11-0.8); Monocytes % 9.5 % (1.7-12.7); Neutrophils # 1.5 10*3/uL (1.4-7.4); Neutrophils % 51.9 % (38.7-73.9); Platelet Count 206 T/CUMM (130-400); Red Cell Distribution Width 16.6 % (9.3-17.3); White Blood Count 2.8 T/CUMM (4-12)
[2018-07-20 05:13] LABS: Albumin 2.3 G/DL (3.4-5.0); Bilirubin,Total 1.2 MG/DL (0.2-1.0); Calcium 8.2 MG/DL (8.5-10.1); Osmolality,Calculated 282.4 MOS/KG (273-304); Total Protein 5.9 G/DL (6.4-8.3)
[2018-07-20] MEDS: DULoxetine 30 MG CAPSULE PO SCH (08:37)
[2018-07-20] MEDS: MULTIVITAMIN (CENTRUM) TABLET PO SCH (08:38)
[2018-07-20] MEDS: ASPIRIN EC 81 MG TABLET PO SCH (08:39)
[2018-07-20] MEDS: LACTOBACILLUS ACIDOPHILUS/BULGARICUS CAPLET PO SCH (08:39)
[2018-07-20] MEDS: PANTOPRAZOLE 40 MG TABLET PO SCH (08:39)
[2018-07-20 12:22] VITALS: BP 147/74
[2018-07-20] MEDS: SODIUM CHLORIDE 0.45% 1,000 ML IV SCH (13:17)
== END 2018-07-20 17:30 | disposition home or self-care (01) | DRG 445 ==
LOC: S.AIR 14:32 → N.4E 16:05
PROVIDERS: ADMIT Specialist; ATTEND Specialist

== ENCOUNTER 2018-08-08 07:00 | Inpatient (IN) ==
[2018-08-08] MEDS: SODIUM CHLORIDE 0.9% IV SCH (18:11)
[2018-08-08] MEDS: FLUOROURACIL IV SCH (18:11)
[2018-08-08] MEDS ORDERED: BENZTROPINE 2 MG/2 ML AMP IV PRN (18:50)
[2018-08-08] MEDS ORDERED: ALPRAZolam 0.25 MG TABLET PO PRN (18:50)
[2018-08-08] MEDS ORDERED: chlorproMAZINE INJ 25 MG in SODIUM CHLORIDE 0.9% 100 ML IV PRN (18:50)
[2018-08-08] MEDS ORDERED: ACETAMINOPHEN 325 MG TABLET PO PRN (18:50)
[2018-08-08] MEDS ORDERED: chlorproMAZINE INJ 50 MG in SODIUM CHLORIDE 0.9% 100 ML IV PRN (18:50)
[2018-08-08] MEDS ORDERED: chlorproMAZINE 25 MG TABLET PO PRN (18:50)
[2018-08-08] MEDS ORDERED: MYLANTA/LIDO VISC 2:1 300 ML BOTTLE SWISH/SPIT PRN (18:50)
[2018-08-08] MEDS ORDERED: ALUMINUM/MAGNES/SIMETH MAX STR 30 ML UDCUP PO PRN (18:50)
[2018-08-08] MEDS ORDERED: guaiFENesin 200 MG/10 ML UDCUP PO PRN (18:50)
[2018-08-08] MEDS ORDERED: LACTULOSE 20 GM/30 ML UDCUP PO PRN (18:50)
[2018-08-08] MEDS ORDERED: LOPERAMIDE 2 MG CAPSULE PO PRN ×2 (18:50)
[2018-08-08] MEDS ORDERED: MAGNESIUM HYDROXIDE SUSP 30 ML UDCUP PO PRN (18:50)
[2018-08-08] MEDS ORDERED: PROMETHAZINE INJ 25 MG in SODIUM CHLORIDE 0.9% 50 ML IV PRN (18:50)
[2018-08-08] MEDS ORDERED: diphenhydrAMINE CAP 25 MG CAPSULE PO PRN (18:50)
[2018-08-08] MEDS ORDERED: MYLANTA/LIDO VISC 2:1 300 ML BOTTLE SWISH/SWAL PRN (18:50)
[2018-08-08] MEDS ORDERED: traMADol 50 MG TABLET PO PRN (18:50)
[2018-08-08] MEDS ORDERED: ONDANSETRON 4 MG/2 ML VIAL IV PRN (18:50)
[2018-08-08] MEDS: TEMAZEPAM 7.5 MG CAPSULE PO PRN (20:48)
[2018-08-09 05:24] LABS: Basophils % 0.2 % (0.0-0.8); Hematocrit 28.4 VOL% (42.0-52.0); Hemoglobin 8.5 GM/DL (14.0-18.0); Immature Granulocytes % 0.6 %; Immature Granulocytes Absolute 0.03 #; Lymphocytes # 1.1 10*3/uL (1.4-4.0); Lymphocytes % 21.6 % (21.2-54.2); Mean Corpuscular HGB Conc 29.9 GM/DL (32-36); Mean Corpuscular Hemoglobin 26 PG (27-34); Mean Corpuscular Volume 86.3 FL (87-102); Mean Platelet Volume 10.6 FL (9.6-12.0); Monocytes # 0.3 10*3/uL (0.11-0.8); Monocytes % 6.5 % (1.7-12.7); Neutrophils # 3.5 10*3/uL (1.4-7.4); Neutrophils % 71.1 % (38.7-73.9); Platelet Count 158 T/CUMM (130-400); Red Blood Count 3.29 MC/CUMM (3.8-5.5); Red Cell Distribution Width 16.5 % (9.3-17.3)
[2018-08-09 05:50] LABS: Albumin 2.7 G/DL (3.4-5.0); Bilirubin,Total 1.2 MG/DL (0.2-1.0); Calcium 8.6 MG/DL (8.5-10.1); Osmolality,Calculated 286.4 MOS/KG (273-304); Potassium 4.7 MMOL/L (3.5-5.1); Total Protein 6.5 G/DL (6.4-8.3); Uric Acid 6.6 MG/DL (3.5-7.2)
[2018-08-09] MEDS ORDERED: ALBUTEROL 2.5 MG/3 ML NEB RESP TX PRN (11:46)
[2018-08-09] MEDS ORDERED: LOPERAMIDE 2 MG CAPSULE PO PRN (11:46)
[2018-08-09] MEDS: PANTOPRAZOLE 40 MG TABLET PO SCH (14:15)
[2018-08-09] MEDS: MULTIVITAMIN (CENTRUM) TABLET PO SCH (14:15)
[2018-08-09] MEDS: ACYCLOVIR 200 MG CAPSULE PO SCH ×2 (14:16→21:05)
[2018-08-09] MEDS: METHYLPHENIDATE 5 MG TABLET PO SCH ×2 (15:07→20:55)
[2018-08-09] MEDS: DULoxetine 30 MG CAPSULE PO SCH (15:07)
[2018-08-09] MEDS: ONDANSETRON 4 MG TABLET PO SCH ×2 (15:07→19:27)
[2018-08-09] MEDS: FLUOROURACIL IV SCH (19:27)
[2018-08-09] MEDS: SODIUM CHLORIDE 0.9% IV SCH (19:27)
[2018-08-09] MEDS ORDERED: GABAPENTIN 300 MG CAPSULE PO SCH (21:00)
[2018-08-09] MEDS: TEMAZEPAM 7.5 MG CAPSULE PO PRN (21:05)
[2018-08-09] MEDS: oxyCODONE IR 5 MG TABLET PO PRN (23:03)
[2018-08-10] MEDS ORDERED: LACTATED RINGERS 1,000 ML IV SCH (00:01)
[2018-08-10] MEDS: ONDANSETRON 4 MG TABLET PO SCH ×4 (01:18→18:41)
[2018-08-10] MEDS ORDERED: ceFAZolin 1,000 MG in SYRINGE 1 EACH IV ONE (06:00)
[2018-08-10] MEDS ORDERED: LIDOCAINE 1%/EPI INJ 20 ML VIAL ONE (08:38)
[2018-08-10] MEDS ORDERED: HEPARIN 5,000 UNIT/1 ML VIAL ONE (08:38)
[2018-08-10] MEDS ORDERED: TISSUE ADHESIVE 1 EACH APPLICATOR TOP ONE (08:38)
[2018-08-10] MEDS ORDERED: METHYLPHENIDATE 5 MG TABLET PO SCH (09:00)
[2018-08-10] MEDS ORDERED: LACTOBACILLUS ACIDOPHILUS/BULGARICUS CAPLET PO SCH (09:00)
[2018-08-10] MEDS ORDERED: MIDAZOLAM 2 MG/2 ML VIAL ONE (09:59)
[2018-08-10] MEDS ORDERED: SODIUM CHLORIDE 0.9% 100 ML IV ONE (09:59)
[2018-08-10] MEDS ORDERED: ONDANSETRON 4 MG/2 ML VIAL ONE (09:59)
[2018-08-10] MEDS ORDERED: fentaNYL 100 MCG/2 ML VIAL ONE (09:59)
[2018-08-10] MEDS ORDERED: PROPOFOL 200 MG/20 ML VIAL IV ONE (09:59)
[2018-08-10] MEDS: DULoxetine 30 MG CAPSULE PO SCH (10:54)
[2018-08-10] MEDS: PANTOPRAZOLE 40 MG TABLET PO SCH (10:54)
[2018-08-10] MEDS: ACYCLOVIR 200 MG CAPSULE PO SCH (10:54)
[2018-08-10] MEDS: MULTIVITAMIN (CENTRUM) TABLET PO SCH (10:54)
[2018-08-10 16:40] VITALS: BP 137/55
[2018-08-10] MEDS ORDERED: HEPARIN LOCK FLUSH 500 UNIT/5 ML SYRINGE IV PRN (17:06)
[2018-08-10] MEDS: oxyCODONE IR 5 MG TABLET PO PRN (18:41)
== END 2018-08-10 19:11 | disposition home or self-care (01) | DRG 829 ==
LOC: N.4E 15:15
PROVIDERS: ADMIT Specialist; ATTEND Specialist

== ENCOUNTER 2018-08-30 11:52 | Inpatient (IN) ==
[2018-08-30 13:08] LABS: Basophils % 0.4 % (0.0-0.8); Eosinophils # 0.1 10*3/uL (0.0-0.87); Eosinophils % 1.7 % (0.00-10.9); Hematocrit 22.8 VOL% (42.0-52.0); Hemoglobin 6.9 GM/DL (14.0-18.0); Immature Granulocytes Absolute 0.05 #; Lymphocytes % 20.5 % (21.2-54.2); Mean Corpuscular HGB Conc 30.3 GM/DL (32-36); Mean Corpuscular Hemoglobin 26 PG (27-34); Mean Corpuscular Volume 84.4 FL (87-102); Mean Platelet Volume 10.2 FL (9.6-12.0); Monocytes # 0.5 10*3/uL (0.11-0.8); Monocytes % 9.6 % (1.7-12.7); Neutrophils # 3.2 10*3/uL (1.4-7.4); Neutrophils % 66.8 % (38.7-73.9); Platelet Count 135 T/CUMM (130-400); Red Cell Distribution Width 17.4 % (9.3-17.3); White Blood Count 4.8 T/CUMM (4-12)
[2018-08-30] MEDS: cefTRIAXone 1,000 MG in SYRINGE 1 EACH IV SCH (13:24)
[2018-08-30 13:26] LABS: Uric Acid 5.8 MG/DL (3.5-7.2)
[2018-08-30 13:33] LABS: Alanine Aminotransferase 14 U/L (16-61); Albumin 2.4 G/DL (3.4-5.0); Alkaline Phosphatase 79 U/L (45-117); Aspartate Amino Transferase 14 U/L (0-37); Bilirubin,Total < 0.39 MG/DL (0.2-1.0); Blood Urea Nitrogen 30 MG/DL (7-18); Calcium 8.4 MG/DL (8.5-10.1); Glucose 120 MG/DL (74-106); Potassium 4.3 MMOL/L (3.5-5.1); Sodium 136 MMOL/L (136-145)
[2018-08-30] MEDS ORDERED: VANCOMYCIN INJ 1,250 MG in SODIUM CHLORIDE 0.9% 250 ML IV SCH (15:00)
[2018-08-30 17:11] LABS: Apearance,Urine CLEAR (Clear); Bilirubin,Urine Negative (Negative); Blood, Urine Negative (Negative); Glucose,Urine (UA) Negative (Negative); Ketones,Urine Negative (Negative); Nitrite,Urine Negative (Negative); Protein,Urine 100 MG/DL; RBC,Urine 3 /HPF (0-4); Squamous Epithelial Cell,Urine Occasional /HPF (0-10); Urine Color Yellow (Yellow); Urine Specific Gravity 1.011 (1.001-1.035); Urine Urobilinogen < 2.0 EU/DL (0.2-1.0); WBC,Urine 1 /HPF (0-6)
[2018-08-30 21:24] LABS: Cholesterol Crystals None Seen /LPF
[2018-08-30 22:16] LABS: Lymphocytes,Synovial Fluid 1 %; Neutrophils,Synovial Fluid 98 %
[2018-08-31 05:31] LABS: Basophils % 0.4 % (0.0-0.8); Eosinophils # 0.1 10*3/uL (0.0-0.87); Eosinophils % 2.2 % (0.00-10.9); Hematocrit 22.8 VOL% (42.0-52.0); Hemoglobin 6.9 GM/DL (14.0-18.0); Immature Granulocytes % 0.9 %; Immature Granulocytes Absolute 0.04 #; Lymphocytes # 1.2 10*3/uL (1.4-4.0); Lymphocytes % 26.3 % (21.2-54.2); Mean Corpuscular HGB Conc 30.3 GM/DL (32-36); Mean Corpuscular Hemoglobin 26 PG (27-34); Mean Corpuscular Volume 84.8 FL (87-102); Mean Platelet Volume 9.7 FL (9.6-12.0); Monocytes # 0.5 10*3/uL (0.11-0.8); Monocytes % 10.4 % (1.7-12.7); Neutrophils # 2.7 10*3/uL (1.4-7.4); Neutrophils % 59.8 % (38.7-73.9); Platelet Count 126 T/CUMM (130-400); Red Blood Count 2.69 MC/CUMM (3.8-5.5); Red Cell Distribution Width 17.5 % (9.3-17.3); White Blood Count 4.5 T/CUMM (4-12)
[2018-08-31] MEDS ORDERED: SODIUM CHLORIDE 0.9% 1,000 ML IV PRN (10:22)
[2018-08-31] MEDS: oxyCODONE IR 5 MG TABLET PO PRN ×3 (10:45→19:29)
[2018-08-31] MEDS ORDERED: LOPERAMIDE 2 MG CAPSULE PO PRN (10:48)
[2018-08-31] MEDS ORDERED: ONDANSETRON 4 MG TABLET PO PRN (10:48)
[2018-08-31] MEDS: ENOXAPARIN 30 MG/0.3 ML SYRINGE SUBCUT SCH (11:38)
[2018-08-31] MEDS: cefTRIAXone 1,000 MG in SYRINGE 1 EACH IV SCH (14:34)
[2018-08-31] MEDS: VANCOMYCIN INJ 1,250 MG in SODIUM CHLORIDE 0.9% 250 ML IV SCH (19:30)
[2018-08-31] MEDS: PANTOPRAZOLE 40 MG TABLET PO SCH (20:52)
[2018-08-31] MEDS: GABAPENTIN 300 MG CAPSULE PO SCH (20:52)
[2018-08-31] MEDS: ZALEPLON 5 MG CAPSULE PO PRN (20:52)
[2018-08-31] MEDS: ACYCLOVIR 200 MG CAPSULE PO SCH (20:53)
[2018-09-01] MEDS: oxyCODONE IR 5 MG TABLET PO PRN ×3 (02:19→23:18)
[2018-09-01 05:55] LABS: Basophils % 1.1 % (0.0-0.8); Eosinophils # 0.1 10*3/uL (0.0-0.87); Eosinophils % 2.9 % (0.00-10.9); Hematocrit 26.7 VOL% (42.0-52.0); Hemoglobin 8.3 GM/DL (14.0-18.0); Immature Granulocytes % 1.3 %; Immature Granulocytes Absolute 0.05 #; Lymphocytes % 26.1 % (21.2-54.2); Mean Corpuscular HGB Conc 31.1 GM/DL (32-36); Mean Corpuscular Hemoglobin 26 PG (27-34); Mean Platelet Volume 10.4 FL (9.6-12.0); Monocytes # 0.5 10*3/uL (0.11-0.8); Neutrophils # 2.1 10*3/uL (1.4-7.4); Neutrophils % 56.6 % (38.7-73.9); Platelet Count 126 T/CUMM (130-400); Red Blood Count 3.18 MC/CUMM (3.8-5.5); Red Cell Distribution Width 16.6 % (9.3-17.3); White Blood Count 3.8 T/CUMM (4-12)
[2018-09-01 06:06] LABS: Partial Thromboplastin Time 26.8 SECS (0-40)
[2018-09-01 06:21] LABS: Alanine Aminotransferase 10 U/L (16-61); Albumin 2.1 G/DL (3.4-5.0); Alkaline Phosphatase 67 U/L (45-117); Aspartate Amino Transferase 13 U/L (0-37); Bilirubin,Total < 0.39 MG/DL (0.2-1.0); Blood Urea Nitrogen 27 MG/DL (7-18); Calcium 8.8 MG/DL (8.5-10.1); Glucose 89 MG/DL (74-106); Osmolality,Calculated 280.5 MOS/KG (273-304); Potassium 4.4 MMOL/L (3.5-5.1); Sodium 139 MMOL/L (136-145); Total Protein 6.8 G/DL (6.4-8.3)
[2018-09-01] MEDS: DULoxetine 30 MG CAPSULE PO SCH (08:48)
[2018-09-01] MEDS: ACYCLOVIR 200 MG CAPSULE PO SCH ×2 (08:48→20:18)
[2018-09-01] MEDS: MULTIVITAMIN (CENTRUM) TABLET PO SCH (08:48)
[2018-09-01] MEDS: METHYLPHENIDATE 5 MG TABLET PO SCH (08:50)
[2018-09-01] MEDS ORDERED: Saccharomyces Boulardii [Probiotic] 250 MG PO SCH (09:00)
[2018-09-01] MEDS: cefTRIAXone 1,000 MG in SYRINGE 1 EACH IV SCH (12:17)
[2018-09-01] MEDS: ENOXAPARIN 30 MG/0.3 ML SYRINGE SUBCUT SCH (12:17)
[2018-09-01] MEDS: ZALEPLON 5 MG CAPSULE PO PRN (20:18)
[2018-09-01] MEDS: PANTOPRAZOLE 40 MG TABLET PO SCH (20:18)
[2018-09-01] MEDS: GABAPENTIN 300 MG CAPSULE PO SCH (20:19)
[2018-09-01] MEDS: VANCOMYCIN INJ 1,250 MG in SODIUM CHLORIDE 0.9% 250 ML IV SCH (20:19)
[2018-09-02 06:21] LABS: Albumin 2.2 G/DL (3.4-5.0); Bilirubin,Total 0.6 MG/DL (0.2-1.0); Calcium 8.5 MG/DL (8.5-10.1); Osmolality,Calculated 277.8 MOS/KG (273-304); Potassium 4.4 MMOL/L (3.5-5.1); Total Protein 6.7 G/DL (6.4-8.3)
[2018-09-02] MEDS: DULoxetine 30 MG CAPSULE PO SCH (09:38)
[2018-09-02] MEDS: METHYLPHENIDATE 5 MG TABLET PO SCH (09:38)
[2018-09-02] MEDS: ACYCLOVIR 200 MG CAPSULE PO SCH ×2 (09:38→20:28)
[2018-09-02] MEDS: MULTIVITAMIN (CENTRUM) TABLET PO SCH (09:38)
[2018-09-02] MEDS: cefTRIAXone 1,000 MG in SYRINGE 1 EACH IV SCH (12:02)
[2018-09-02] MEDS: ENOXAPARIN 30 MG/0.3 ML SYRINGE SUBCUT SCH (12:02)
[2018-09-02] MEDS: oxyCODONE IR 5 MG TABLET PO PRN ×2 (17:28→22:46)
[2018-09-02] MEDS: GABAPENTIN 300 MG CAPSULE PO SCH (20:27)
[2018-09-02] MEDS: VANCOMYCIN INJ 1,250 MG in SODIUM CHLORIDE 0.9% 250 ML IV SCH (20:28)
[2018-09-02] MEDS: PANTOPRAZOLE 40 MG TABLET PO SCH (20:28)
[2018-09-03 04:32] LABS: Basophils % 0.5 % (0.0-0.8); Eosinophils # 0.1 10*3/uL (0.0-0.87); Eosinophils % 2.1 % (0.00-10.9); Hematocrit 26.4 VOL% (42.0-52.0); Hemoglobin 8.2 GM/DL (14.0-18.0); Immature Granulocytes % 0.5 %; Immature Granulocytes Absolute 0.02 #; Lymphocytes # 1.4 10*3/uL (1.4-4.0); Lymphocytes % 37.2 % (21.2-54.2); Mean Corpuscular HGB Conc 31.1 GM/DL (32-36); Mean Corpuscular Hemoglobin 26 PG (27-34); Mean Corpuscular Volume 83.5 FL (87-102); Mean Platelet Volume 10.2 FL (9.6-12.0); Monocytes # 0.5 10*3/uL (0.11-0.8); Monocytes % 14.2 % (1.7-12.7); Neutrophils # 1.7 10*3/uL (1.4-7.4); Neutrophils % 45.5 % (38.7-73.9); Platelet Count 119 T/CUMM (130-400); Red Blood Count 3.16 MC/CUMM (3.8-5.5); Red Cell Distribution Width 16.2 % (9.3-17.3); White Blood Count 3.8 T/CUMM (4-12)
[2018-09-03 05:04] LABS: Albumin 2.1 G/DL (3.4-5.0); Bilirubin,Total 0.8 MG/DL (0.2-1.0); Calcium 8.8 MG/DL (8.5-10.1); Osmolality,Calculated 278.8 MOS/KG (273-304); Potassium 4.5 MMOL/L (3.5-5.1); Total Protein 6.7 G/DL (6.4-8.3)
[2018-09-03] MEDS ORDERED: SODIUM CHLORIDE 0.9% 1,000 ML IV PRN ×3 (08:45→19:15)
[2018-09-03] MEDS: DULoxetine 30 MG CAPSULE PO SCH (08:59)
[2018-09-03] MEDS: METHYLPHENIDATE 5 MG TABLET PO SCH (09:00)
[2018-09-03] MEDS: ACYCLOVIR 200 MG CAPSULE PO SCH ×2 (09:00→21:04)
[2018-09-03] MEDS: MULTIVITAMIN (CENTRUM) TABLET PO SCH (09:00)
[2018-09-03] MEDS: ENOXAPARIN 30 MG/0.3 ML SYRINGE SUBCUT SCH (12:30)
[2018-09-03] MEDS: cefTRIAXone 2,000 MG in SYRINGE 1 EACH IV SCH (12:30)
[2018-09-03] MEDS: oxyCODONE IR 5 MG TABLET PO PRN ×2 (14:11→21:09)
[2018-09-03] MEDS ORDERED: guaiFENesin 200 MG/10 ML UDCUP PO PRN (17:38)
[2018-09-03] MEDS: PANTOPRAZOLE 40 MG TABLET PO SCH (21:03)
[2018-09-03] MEDS: GABAPENTIN 300 MG CAPSULE PO SCH (21:03)
[2018-09-03] MEDS: ZALEPLON 5 MG CAPSULE PO PRN (21:04)
[2018-09-04] MEDS: DEXTROSE 5% LACTATED RINGERS 1,000 ML IV SCH ×3 (01:45→19:41)
[2018-09-04 05:52] LABS: Basophils % 0.9 % (0.0-0.8); Eosinophils # 0.1 10*3/uL (0.0-0.87); Eosinophils % 2.3 % (0.00-10.9); Hematocrit 33.8 VOL% (42.0-52.0); Hemoglobin 10.7 GM/DL (14.0-18.0); Immature Granulocytes % 0.2 %; Immature Granulocytes Absolute 0.01 #; Lymphocytes # 1.4 10*3/uL (1.4-4.0); Lymphocytes % 31.7 % (21.2-54.2); Mean Corpuscular HGB Conc 31.7 GM/DL (32-36); Mean Corpuscular Hemoglobin 27 PG (27-34); Mean Corpuscular Volume 83.7 FL (87-102); Mean Platelet Volume 10.9 FL (9.6-12.0); Monocytes # 0.5 10*3/uL (0.11-0.8); Monocytes % 12.2 % (1.7-12.7); Neutrophils # 2.3 10*3/uL (1.4-7.4); Neutrophils % 52.7 % (38.7-73.9); Platelet Count 140 T/CUMM (130-400); Red Blood Count 4.04 MC/CUMM (3.8-5.5); White Blood Count 4.4 T/CUMM (4-12)
[2018-09-04] MEDS ORDERED: TOBRAMYCIN 1.2 GM VIAL TOP ONE (06:28)
[2018-09-04] MEDS ORDERED: VANCOMYCIN 1,000 MG VIAL ONE (10:51)
[2018-09-04] MEDS ORDERED: ROPIVACAINE 0.5% 30 ML VIAL ONE ×2 (10:59→16:11)
[2018-09-04] MEDS ORDERED: MIDAZOLAM 2 MG/2 ML VIAL ONE (13:13)
[2018-09-04] MEDS ORDERED: fentaNYL 100 MCG/2 ML VIAL ONE ×2 (13:13→15:31)
[2018-09-04] MEDS ORDERED: BACITRACIN OINT 0.9 GM PACK TOP ONE (13:45)
[2018-09-04] MEDS ORDERED: TRANEXAMIC ACID 1,000 MG/10 ML VIAL ONE (13:45)
[2018-09-04] MEDS ORDERED: MORPHINE 4 MG/1 ML VIAL IV PRN ×2 (15:25)
[2018-09-04] MEDS ORDERED: oxyCODONE/ACETAMINOPHEN 5-325 MG TABLET PO PRN (15:25)
[2018-09-04] MEDS ORDERED: diphenhydrAMINE CAP 25 MG CAPSULE PO PRN (15:25)
[2018-09-04] MEDS ORDERED: SODIUM CHLORIDE 0.9% 1,000 ML IV PRN (15:29)
[2018-09-04] MEDS ORDERED: FUROSEMIDE 20 MG/2 ML VIAL IV PRN (15:29)
[2018-09-04] MEDS ORDERED: ONDANSETRON 4 MG/2 ML VIAL ONE ×2 (15:30→15:44)
[2018-09-04] MEDS ORDERED: METOPROLOL TARTRATE 5 MG/5 ML VIAL IV ONE (15:30)
[2018-09-04] MEDS ORDERED: PROPOFOL 200 MG/20 ML VIAL IV ONE (15:30)
[2018-09-04] MEDS ORDERED: SEVOFLURANE 1 UNIT/15 MINUTE INH ONE (15:30)
[2018-09-04] MEDS ORDERED: ROCURONIUM 100 MG/10 ML VIAL IV ONE (15:31)
[2018-09-04] MEDS ORDERED: LACTATED RINGERS 1,000 ML IV ONE (15:31)
[2018-09-04] MEDS ORDERED: PHENYLEPHRINE 1 MG/10 ML SYRINGE IV ONE (15:31)
[2018-09-04] MEDS ORDERED: HYDROmorphone 2 MG/1 ML VIAL ONE (15:44)
[2018-09-04] MEDS ORDERED: ONDANSETRON 4 MG/2 ML VIAL IV PRN (15:44)
[2018-09-04] MEDS: HYDROmorphone 2 MG/1 ML VIAL IV PRN ×3 (15:45→16:05)
[2018-09-04 15:58] LABS: Basophils % 0.3 % (0.0-0.8); Eosinophils # 0.1 10*3/uL (0.0-0.87); Eosinophils % 0.8 % (0.00-10.9); Hematocrit 29.3 VOL% (42.0-52.0); Hemoglobin 9.1 GM/DL (14.0-18.0); Immature Granulocytes % 0.7 %; Immature Granulocytes Absolute 0.06 #; Lymphocytes # 2.2 10*3/uL (1.4-4.0); Lymphocytes % 25.3 % (21.2-54.2); Mean Corpuscular HGB Conc 31.1 GM/DL (32-36); Mean Corpuscular Hemoglobin 26 PG (27-34); Mean Corpuscular Volume 84.2 FL (87-102); Mean Platelet Volume 10.3 FL (9.6-12.0); Monocytes # 0.6 10*3/uL (0.11-0.8); Monocytes % 7.2 % (1.7-12.7); Neutrophils # 5.6 10*3/uL (1.4-7.4); Neutrophils % 65.7 % (38.7-73.9); Platelet Count 153 T/CUMM (130-400); Red Blood Count 3.48 MC/CUMM (3.8-5.5); Red Cell Distribution Width 16.2 % (9.3-17.3); White Blood Count 8.6 T/CUMM (4-12)
[2018-09-04] MEDS: cefTRIAXone 2,000 MG in SYRINGE 1 EACH IV SCH (19:42)
[2018-09-04] MEDS: METHYLPHENIDATE 5 MG TABLET PO SCH (19:42)
[2018-09-04] MEDS: MULTIVITAMIN (CENTRUM) TABLET PO SCH (19:42)
[2018-09-04] MEDS: DULoxetine 30 MG CAPSULE PO SCH (19:42)
[2018-09-04] MEDS: ACYCLOVIR 200 MG CAPSULE PO SCH ×2 (19:42→20:55)
[2018-09-04] MEDS: GABAPENTIN 300 MG CAPSULE PO SCH (20:51)
[2018-09-04] MEDS: DOCUSATE SODIUM 100 MG CAPSULE PO SCH (20:51)
[2018-09-04] MEDS: PANTOPRAZOLE 40 MG TABLET PO SCH (20:52)
[2018-09-04] MEDS: ENOXAPARIN 30 MG/0.3 ML SYRINGE SUBCUT SCH (20:53)
[2018-09-05] MEDS: oxyCODONE IR 5 MG TABLET PO PRN ×3 (03:44→21:16)
[2018-09-05] MEDS: DEXTROSE 5% LACTATED RINGERS 1,000 ML IV SCH (03:47)
[2018-09-05 06:20] LABS: Basophils % 0.4 % (0.0-0.8); Hematocrit 25.5 VOL% (42.0-52.0); Hemoglobin 7.9 GM/DL (14.0-18.0); Immature Granulocytes % 0.7 %; Immature Granulocytes Absolute 0.06 #; Lymphocytes # 1.1 10*3/uL (1.4-4.0); Lymphocytes % 12.9 % (21.2-54.2); Mean Corpuscular Hemoglobin 26 PG (27-34); Mean Corpuscular Volume 85.3 FL (87-102); Mean Platelet Volume 11.4 FL (9.6-12.0); Monocytes # 0.9 10*3/uL (0.11-0.8); Monocytes % 10.1 % (1.7-12.7); Neutrophils # 6.4 10*3/uL (1.4-7.4); Neutrophils % 75.9 % (38.7-73.9); Platelet Count 141 T/CUMM (130-400); Red Blood Count 2.99 MC/CUMM (3.8-5.5); Red Cell Distribution Width 16.5 % (9.3-17.3); White Blood Count 8.4 T/CUMM (4-12)
[2018-09-05 07:00] LABS: Calcium 7.8 MG/DL (8.5-10.1); Potassium 5.4 MMOL/L (3.5-5.1)
[2018-09-05] MEDS: DOCUSATE SODIUM 100 MG CAPSULE PO SCH ×2 (08:39→20:51)
[2018-09-05] MEDS: ACYCLOVIR 200 MG CAPSULE PO SCH (08:39)
[2018-09-05] MEDS: METHYLPHENIDATE 5 MG TABLET PO SCH (08:39)
[2018-09-05] MEDS: DULoxetine 30 MG CAPSULE PO SCH (08:39)
[2018-09-05] MEDS: MULTIVITAMIN (CENTRUM) TABLET PO SCH (08:39)
[2018-09-05] MEDS: SODIUM CHLORIDE 0.45% 1,000 ML IV SCH ×2 (10:49→21:15)
[2018-09-05] MEDS: MORPHINE 4 MG/1 ML VIAL IV PRN ×3 (12:02→21:17)
[2018-09-05] MEDS: cefTRIAXone 2,000 MG in SYRINGE 1 EACH IV SCH (12:04)
[2018-09-05] MEDS: GABAPENTIN 300 MG CAPSULE PO SCH (20:51)
[2018-09-05] MEDS: ENOXAPARIN 30 MG/0.3 ML SYRINGE SUBCUT SCH (20:52)
[2018-09-05] MEDS: PANTOPRAZOLE 40 MG TABLET PO SCH (20:52)
[2018-09-06 07:11] LABS: Basophils % 0.4 % (0.0-0.8); Eosinophils % 0.5 % (0.00-10.9); Hematocrit 19.1 VOL% (42.0-52.0); Immature Granulocytes % 1.1 %; Immature Granulocytes Absolute 0.06 #; Lymphocytes # 1.1 10*3/uL (1.4-4.0); Lymphocytes % 19.3 % (21.2-54.2); Mean Corpuscular HGB Conc 31.4 GM/DL (32-36); Mean Corpuscular Hemoglobin 26 PG (27-34); Mean Corpuscular Volume 84.1 FL (87-102); Mean Platelet Volume 10.7 FL (9.6-12.0); Monocytes # 0.6 10*3/uL (0.11-0.8); Monocytes % 10.2 % (1.7-12.7); NRBC # 0.02 10*3/uL; Neutrophils # 3.8 10*3/uL (1.4-7.4); Neutrophils % 68.5 % (38.7-73.9); Red Blood Count 2.27 MC/CUMM (3.8-5.5); Red Cell Distribution Width 16.3 % (9.3-17.3); White Blood Count 5.5 T/CUMM (4-12)
[2018-09-06 07:15] LABS: Platelet Count 92 T/CUMM (130-400)
[2018-09-06 07:26] LABS: Platelet Estimate Decreased
[2018-09-06 07:27] LABS: Anisocytosis 1+; Hypochromasia 1+; Ovalocytes Few; Poikilocytosis Slight
[2018-09-06] MEDS ORDERED: SODIUM CHLORIDE 0.9% 1,000 ML IV PRN (09:05)
[2018-09-06] MEDS: SODIUM CHLORIDE 0.45% 1,000 ML IV SCH ×3 (09:13→22:24)
[2018-09-06] MEDS: DULoxetine 30 MG CAPSULE PO SCH (09:23)
[2018-09-06] MEDS: METHYLPHENIDATE 5 MG TABLET PO SCH (09:23)
[2018-09-06] MEDS: oxyCODONE/ACETAMINOPHEN 5-325 MG TABLET PO PRN (09:23)
[2018-09-06] MEDS: ACYCLOVIR 200 MG CAPSULE PO SCH (09:24)
[2018-09-06] MEDS: DOCUSATE SODIUM 100 MG CAPSULE PO SCH ×2 (09:24→20:57)
[2018-09-06] MEDS: MULTIVITAMIN (CENTRUM) TABLET PO SCH (09:24)
[2018-09-06] MEDS: cefTRIAXone 2,000 MG in SYRINGE 1 EACH IV SCH (13:38)
[2018-09-06] MEDS: PANTOPRAZOLE 40 MG TABLET PO SCH (20:58)
[2018-09-06] MEDS: GABAPENTIN 300 MG CAPSULE PO SCH (20:58)
[2018-09-06 21:07] LABS: Hematocrit 23.2 VOL% (42.0-52.0); Hemoglobin 7.4 GM/DL (14.0-18.0)
[2018-09-07] MEDS: MORPHINE 4 MG/1 ML VIAL IV PRN (01:53)
[2018-09-07 04:43] LABS: Basophils % 0.3 % (0.0-0.8); Eosinophils # 0.1 10*3/uL (0.0-0.87); Eosinophils % 0.9 % (0.00-10.9); Hemoglobin 7.4 GM/DL (14.0-18.0); Immature Granulocytes % 0.5 %; Immature Granulocytes Absolute 0.03 #; Lymphocytes # 1.1 10*3/uL (1.4-4.0); Lymphocytes % 18.5 % (21.2-54.2); Mean Corpuscular HGB Conc 30.8 GM/DL (32-36); Mean Corpuscular Hemoglobin 27 PG (27-34); Mean Corpuscular Volume 86.3 FL (87-102); Monocytes # 0.5 10*3/uL (0.11-0.8); Monocytes % 8.2 % (1.7-12.7); Neutrophils # 4.1 10*3/uL (1.4-7.4); Neutrophils % 71.6 % (38.7-73.9); Platelet Count 101 T/CUMM (130-400); Red Blood Count 2.78 MC/CUMM (3.8-5.5); Red Cell Distribution Width 15.2 % (9.3-17.3); White Blood Count 5.7 T/CUMM (4-12)
[2018-09-07 05:05] LABS: Calcium 7.9 MG/DL (8.5-10.1); Osmolality,Calculated 280.8 MOS/KG (273-304); Potassium 4.8 MMOL/L (3.5-5.1)
[2018-09-07] MEDS: METHYLPHENIDATE 5 MG TABLET PO SCH (08:27)
[2018-09-07] MEDS: DOCUSATE SODIUM 100 MG CAPSULE PO SCH ×2 (08:27→20:27)
[2018-09-07] MEDS: DULoxetine 30 MG CAPSULE PO SCH (08:27)
[2018-09-07] MEDS: MULTIVITAMIN (CENTRUM) TABLET PO SCH (08:27)
[2018-09-07] MEDS: ACYCLOVIR 200 MG CAPSULE PO SCH (08:27)
[2018-09-07] MEDS: MAGNESIUM HYDROXIDE SUSP 30 ML UDCUP PO PRN (08:33)
[2018-09-07] MEDS: oxyCODONE/ACETAMINOPHEN 5-325 MG TABLET PO PRN ×3 (08:34→18:17)
[2018-09-07] MEDS: cefTRIAXone 2,000 MG in SYRINGE 1 EACH IV SCH (11:53)
[2018-09-07] MEDS: ENOXAPARIN 30 MG/0.3 ML SYRINGE SUBCUT SCH (11:53)
[2018-09-07] MEDS ORDERED: BISACODYL 10 MG SUPP RECTAL ONE (16:46)
[2018-09-07] MEDS: GABAPENTIN 300 MG CAPSULE PO SCH (20:26)
[2018-09-07] MEDS: PANTOPRAZOLE 40 MG TABLET PO SCH (20:27)
[2018-09-08 04:50] LABS: Basophils % 0.2 % (0.0-0.8); Eosinophils # 0.1 10*3/uL (0.0-0.87); Eosinophils % 1.8 % (0.00-10.9); Hematocrit 22.6 VOL% (42.0-52.0); Hemoglobin 7.1 GM/DL (14.0-18.0); Immature Granulocytes % 0.7 %; Immature Granulocytes Absolute 0.03 #; Lymphocytes % 22.5 % (21.2-54.2); Mean Corpuscular HGB Conc 31.4 GM/DL (32-36); Mean Corpuscular Hemoglobin 27 PG (27-34); Mean Corpuscular Volume 85.9 FL (87-102); Monocytes # 0.4 10*3/uL (0.11-0.8); Monocytes % 9.7 % (1.7-12.7); Neutrophils # 2.8 10*3/uL (1.4-7.4); Neutrophils % 65.1 % (38.7-73.9); Platelet Count 113 T/CUMM (130-400); Red Blood Count 2.63 MC/CUMM (3.8-5.5); Red Cell Distribution Width 15.5 % (9.3-17.3); White Blood Count 4.4 T/CUMM (4-12)
[2018-09-08] MEDS: DULoxetine 30 MG CAPSULE PO SCH (09:10)
[2018-09-08] MEDS: MAGNESIUM HYDROXIDE SUSP 30 ML UDCUP PO PRN ×2 (09:10→17:44)
[2018-09-08] MEDS: METHYLPHENIDATE 5 MG TABLET PO SCH (09:10)
[2018-09-08] MEDS: DOCUSATE SODIUM 100 MG CAPSULE PO SCH ×2 (09:10→20:26)
[2018-09-08] MEDS: ACYCLOVIR 200 MG CAPSULE PO SCH (09:10)
[2018-09-08] MEDS: MULTIVITAMIN (CENTRUM) TABLET PO SCH (09:10)
[2018-09-08] MEDS: MORPHINE 4 MG/1 ML VIAL IV PRN ×3 (11:37→20:27)
[2018-09-08] MEDS: cefTRIAXone 2,000 MG in SYRINGE 1 EACH IV SCH (11:39)
[2018-09-08] MEDS: ENOXAPARIN 30 MG/0.3 ML SYRINGE SUBCUT SCH (11:39)
[2018-09-08] MEDS: PANTOPRAZOLE 40 MG TABLET PO SCH (20:27)
[2018-09-08] MEDS: GABAPENTIN 300 MG CAPSULE PO SCH (20:27)
[2018-09-09 05:21] LABS: Basophils % 0.7 % (0.0-0.8); Eosinophils # 0.1 10*3/uL (0.0-0.87); Eosinophils % 2.4 % (0.00-10.9); Hematocrit 23.4 VOL% (42.0-52.0); Hemoglobin 7.2 GM/DL (14.0-18.0); Immature Granulocytes % 1.4 %; Immature Granulocytes Absolute 0.06 #; Lymphocytes # 1.1 10*3/uL (1.4-4.0); Lymphocytes % 26.7 % (21.2-54.2); Mean Corpuscular HGB Conc 30.8 GM/DL (32-36); Mean Corpuscular Hemoglobin 27 PG (27-34); Mean Corpuscular Volume 86.3 FL (87-102); Mean Platelet Volume 10.9 FL (9.6-12.0); Monocytes # 0.5 10*3/uL (0.11-0.8); Monocytes % 12.5 % (1.7-12.7); Neutrophils # 2.4 10*3/uL (1.4-7.4); Neutrophils % 56.3 % (38.7-73.9); Platelet Count 126 T/CUMM (130-400); Red Blood Count 2.71 MC/CUMM (3.8-5.5); Red Cell Distribution Width 15.4 % (9.3-17.3); White Blood Count 4.2 T/CUMM (4-12)
[2018-09-09 07:47] LABS: Calcium 8.1 MG/DL (8.5-10.1); Potassium 4.3 MMOL/L (3.5-5.1)
[2018-09-09] MEDS: ACYCLOVIR 200 MG CAPSULE PO SCH (09:35)
[2018-09-09] MEDS: METHYLPHENIDATE 5 MG TABLET PO SCH (09:35)
[2018-09-09] MEDS: oxyCODONE/ACETAMINOPHEN 5-325 MG TABLET PO PRN ×2 (09:36→18:39)
[2018-09-09] MEDS: ENOXAPARIN 30 MG/0.3 ML SYRINGE SUBCUT SCH (09:36)
[2018-09-09] MEDS: DULoxetine 30 MG CAPSULE PO SCH (09:36)
[2018-09-09] MEDS: MULTIVITAMIN (CENTRUM) TABLET PO SCH (09:36)
[2018-09-09] MEDS: DOCUSATE SODIUM 100 MG CAPSULE PO SCH ×2 (09:36→20:43)
[2018-09-09] MEDS: MAGNESIUM HYDROXIDE SUSP 30 ML UDCUP PO PRN (09:38)
[2018-09-09] MEDS: MORPHINE 4 MG/1 ML VIAL IV PRN (10:58)
[2018-09-09] MEDS: cefTRIAXone 2,000 MG in SYRINGE 1 EACH IV SCH (11:41)
[2018-09-09] MEDS: PANTOPRAZOLE 40 MG TABLET PO SCH (20:43)
[2018-09-09] MEDS: GABAPENTIN 300 MG CAPSULE PO SCH (20:43)
[2018-09-10 04:25] LABS: Basophils % 0.7 % (0.0-0.8); Eosinophils # 0.2 10*3/uL (0.0-0.87); Hematocrit 23.3 VOL% (42.0-52.0); Hemoglobin 7.2 GM/DL (14.0-18.0); Immature Granulocytes % 0.7 %; Immature Granulocytes Absolute 0.03 #; Lymphocytes # 1.2 10*3/uL (1.4-4.0); Lymphocytes % 30.5 % (21.2-54.2); Mean Corpuscular HGB Conc 30.9 GM/DL (32-36); Mean Corpuscular Hemoglobin 27 PG (27-34); Mean Corpuscular Volume 86.9 FL (87-102); Mean Platelet Volume 10.8 FL (9.6-12.0); Monocytes # 0.5 10*3/uL (0.11-0.8); Monocytes % 12.2 % (1.7-12.7); Neutrophils # 2.1 10*3/uL (1.4-7.4); Neutrophils % 51.9 % (38.7-73.9); Platelet Count 132 T/CUMM (130-400); Red Blood Count 2.68 MC/CUMM (3.8-5.5); Red Cell Distribution Width 15.3 % (9.3-17.3)
[2018-09-10 07:25] VITALS: BP 147/56
[2018-09-10] MEDS: DOCUSATE SODIUM 100 MG CAPSULE PO SCH (09:36)
[2018-09-10] MEDS: ACYCLOVIR 200 MG CAPSULE PO SCH (09:37)
[2018-09-10] MEDS: MULTIVITAMIN (CENTRUM) TABLET PO SCH (09:37)
[2018-09-10] MEDS: DULoxetine 30 MG CAPSULE PO SCH (09:37)
[2018-09-10] MEDS: ENOXAPARIN 30 MG/0.3 ML SYRINGE SUBCUT SCH (09:37)
[2018-09-10] MEDS: METHYLPHENIDATE 5 MG TABLET PO SCH (09:37)
[2018-09-10] MEDS: oxyCODONE/ACETAMINOPHEN 5-325 MG TABLET PO PRN (09:37)
[2018-09-10] MEDS: cefTRIAXone 2,000 MG in SYRINGE 1 EACH IV SCH ×2 (09:38→11:02)
[2018-09-10] MEDS ORDERED: HEPARIN LOCK FLUSH 500 UNIT/5 ML SYRINGE IV ONE (11:35)
== END 2018-09-10 12:40 | disposition home health service (06) | DRG 463 ==
LOC: N.4E 12:09
PROVIDERS: ADMIT Specialist; ATTEND Specialist